=== PATIENT | female | born 1955 | race Caucasian/White ===

== ENCOUNTER → 2016-05-25 | Outpatient (CLI) | payer MEDICAID | LOC: RT 10:25 | PROVIDERS: ATTEND Internal Medicine | DX: I25.10 Atherosclerotic heart disease of native coronary artery without angina pectoris (principal) | CPT/HCPCS: 93005 ==

== ENCOUNTER 2016-05-28 14:02 | Emergency (ER) | payer MEDICAID ==
[~2016-05-28] VITALS: Ht 160 cm; Wt 78.2 kg
[2016-05-28 14:51] LABS: ALBUMIN 4.1 g/dL (3.4-5.0); ALKALINE PHOSPHATASE 154 U/L (38-126); ANION GAP 15.3 MEQ/L (3-15); BUN/CREATININE RATIO 16 (10-20); CALCULATED IONIZED CALCIUM 4.3 mg/dL (3.8-4.6); CREATINE KINASE 73 U/L (30-135)
[2016-05-28 14:52] LABS: BASOPHILS % (AUTO) 0 % (0-2); EOSINOPHILS # (AUTO) 0.2 10^3uL; EOSINOPHILS % (AUTO) 4 % (0-4); LYMPHOCYTES # (AUTO) 1.8 X10^3; MEAN CORPUSCULAR HEMOGLOBIN 29.9 PG (26.0-34.0); MEAN CORPUSCULAR HGB CONC 35.3 g/dL (31.0-37.0); MEAN CORPUSCULAR VOLUME 85 FL (80-100); MEAN PLATELET VOLUME 10.2 FL (6.0-9.5); MONOCYTES # (AUTO) 0.6 X10^3; MONOCYTES % (AUTO) 11 % (3-11); NEUTROPHILS # (AUTO) 2.9 X10^3; NEUTROPHILS % (AUTO) 53 % (51-67); PLATELET COUNT 190 10^3uL (150-450); WHITE BLOOD COUNT 5.59 10^3uL (4.0-11.0)
--- NOTE | 2016-05-28 15:16 | NUR ---
PATIENT COMPLAINS THAT PAIN IS "WORSE" - INDICATES STERNAL AREA AND DESCRIBES PAIN STILL "DEEP, DULL, ACHE" THAT IS RATED AT "7". DENIES NAUSEA OR VOMITING. DENIES DIAPHORESIS.
--- NOTE | 2016-05-28 15:17 | NUR ---
PATIENT COMPLAINT REPORTED TO DR. BONDS.
[2016-05-28] MEDS ORDERED: KETOROLAC 30 MG/ML (TORADOL) 1 ML VIAL IV ONE (15:30)
[2016-05-28 15:50] VITALS: BP 133/80
== END 2016-05-28 15:51 | disposition home or self-care (01) ==
LOC: ED 14:03
DX: R07.89 Other chest pain (principal); E05.90 Thyrotoxicosis, unspecified without thyrotoxic crisis or storm; R60.9 Edema, unspecified
CPT/HCPCS: 36415; 71010; 80053; 82550; 82553; 83880; 84443; 84484; 85025; 85610; 93005; 96374; 99285; J1885; 93010

== ENCOUNTER 2016-08-01 19:57 | Emergency (ER) | payer MEDICAID ==
[~2016-08-01] VITALS: Ht 160 cm; Wt 72.7 kg
[~2016-08-01 19:57] MED LIST changes: -FURO40TA4 PO; -HYDR8TAB PO; -NITR0.4T7 SL
[2016-08-01] MEDS ORDERED: SODIUM CHLORIDE FLUSH 3 ML SYR IV PRN (20:05)
[2016-08-01] MEDS ORDERED: ONDANSETRON 2 MG/ML (Z0FRAN) 2 ML VIAL IV ONE (20:05)
[2016-08-01] MEDS ORDERED: SODIUM CHLORIDE FLUSH 10 ML SYR IV PRN (20:05)
[2016-08-01] MEDS ORDERED: SODIUM CHLORIDE 250 ML IV PRN (20:05)
[2016-08-01] MEDS ORDERED: NITROGLYCERIN SUBLINGUAL 0.4 MG (NITROQUICK) TABLET SL PRN (20:05)
[2016-08-01] MEDS ORDERED: HYDR8TAB PO (20:10)
[2016-08-01] MEDS ORDERED: FURO40TA4 PO (20:10)
[2016-08-01] MEDS ORDERED: TICA90TA PO (20:10)
[2016-08-01] MEDS ORDERED: LORA1TAB PO (20:10)
--- NOTE | 2016-08-01 20:49 | NUR ---
Pt requested to take half one of her prescribed pain medications (prescribed for chronic back pain) because she has not had one since 10am. Dr. Castillo approved her request. Pt took 1/2 tablet of 8mg Dilaudid at 2048.
--- NOTE | 2016-08-01 20:50 | Diagnostic Imaging Report ---
INDICATION: Chest pain. EXAMINATION: Portable chest at 8:39 p.m. 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 Heart size and pulmonary vascularity are normal. Lungs are clear. There are no effusions or pneumothoraces. IMPRESSION: No acute abnormalities in the chest. Dictated by: Dictated on workstation # [id number]
[2016-08-01 21:09] LABS: BASOPHILS % (AUTO) 0 % (0-2); EOSINOPHILS # (AUTO) 0.1 10^3uL; EOSINOPHILS % (AUTO) 1 % (0-4); LYMPHOCYTES # (AUTO) 0.9 X10^3; MEAN CORPUSCULAR HEMOGLOBIN 28.8 PG (26.0-34.0); MEAN CORPUSCULAR HGB CONC 34.8 g/dL (31.0-37.0); MEAN CORPUSCULAR VOLUME 83 FL (80-100); MEAN PLATELET VOLUME 10.7 FL (6.0-9.5); MONOCYTES # (AUTO) 0.4 X10^3; MONOCYTES % (AUTO) 7 % (3-11); NEUTROPHILS # (AUTO) 3.8 X10^3; NEUTROPHILS % (AUTO) 74 % (51-67); PLATELET COUNT 184 10^3uL (150-450); WHITE BLOOD COUNT 5.07 10^3uL (4.0-11.0)
[2016-08-01] MEDS ORDERED: HYDROmorphone 1 MG/ML (DILAUDID) SYRINGE IV ONE (21:10)
[2016-08-01 21:14] LABS: ALBUMIN 3.8 g/dL (3.4-5.0); ALKALINE PHOSPHATASE 166 U/L (38-126); ANION GAP 14.1 MEQ/L (3-15); BUN/CREATININE RATIO 10 (10-20); CALCULATED IONIZED CALCIUM 4.1 mg/dL (3.8-4.6); CREATINE KINASE 49 U/L (30-135); TOTAL PROTEIN 6.8 g/dL (6.4-8.5)
[2016-08-01 21:20] LABS: AMPHETAMINE SCREEN, URINE Negative (Negative); CANNABINOID SCREEN, URINE Negative (Negative); METHAMPHETAMINE SCREEN URINE S NEGATIVE (NEGATIVE)
[2016-08-01 21:21] LABS: OPIATE SCREEN URINE Positive (Negative); PROPOXYPHENE STAT NEGATIVE (NEGATIVE)
[2016-08-01] MEDS ORDERED: NITR0.4T7 SL (21:56)
[2016-08-01 22:16] VITALS: BP 134/81
== END 2016-08-01 22:10 | disposition home or self-care (01) ==
LOC: EDUNIT# 19:57 → ED 19:58
DX: I20.9 Angina pectoris, unspecified (principal); I25.2 Old myocardial infarction; Z95.818 Presence of other cardiac implants and grafts; Z95.1 Presence of aortocoronary bypass graft; I10 Essential (primary) hypertension; Z72.0 Tobacco use
CPT/HCPCS: 36415; 71010; 80053; 80307; 82550; 82553; 83735; 83880; 84439; 84443; 84484; 85025; 85610; 85730; 86140; 93005; 96374; 99285; A9270; G0480; J1170; J7050; 80320; 93010

== ENCOUNTER → 2016-08-01 | Outpatient (CLI) | payer MEDICAID ==
[~2016-08-01] MED LIST: AGM500T PO; ALBU8.5H6 INH; AML2.5T; ASP81CT PO; ATOR40TA2 PO; ATOR40TA59 PO; BUDE10.2 INH; CALC300T10 PO; CLPD75T PO; CPR500T PO; DULO30CA PO; FERR325C PO; FERR325T36 PO; FURO40TA4 PO; HYDR-3702 PO; HYDR-3811 PO; HYDR8TAB PO; ISM60TCR PO; ISOS20TA5 PO; LEVO125T70 PO; LEVO150T6 PO; LINA290C PO; LORA1TAB PO; LVT.025T PO; LVT.15T PO; MAG30ORA PO; MECL-105 PO; METO25TA2 PO; METO25TA60 PO; METO50TA7 PO; METR500T17 PO; MTP50T PO; NIFE60TA11 PO; NITR0.4T7 SL; OMEP40CA36 PO; OXC5T PO; OXYC1TAB8 PO; POLY17PO2 PO; PRAS10TA6 PO; RANO500T3 PO; SIMV80TA3 PO; SPIR50TA29 PO; TICA90TA PO; ZLP10T PO; [UNRECOGNIZED DRUG - CODE] PO
== END ==
LOC: EMS 19:45
PROVIDERS: ATTEND Family Medicine
DX: R07.89 Other chest pain (principal)

== ENCOUNTER → 2016-08-24 | Outpatient (CLI) | payer MEDICAID ==
[~2016-08-24] MED LIST changes: +FURO40TA4 PO; +HYDR8TAB PO; +NITR0.4T7 SL
== END ==
LOC: RT 10:12
PROVIDERS: ATTEND Internal Medicine
DX: I25.10 Atherosclerotic heart disease of native coronary artery without angina pectoris (principal)
CPT/HCPCS: 93005